=== PATIENT | female | born 1970 | race Caucasian/White ===

== ENCOUNTER 2023-03-20 14:39 | Outpatient (OUT) | payer OTHER, SELFPAY ==
--- NOTE | 2023-03-20 15:13 | ECG_ITS ---
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
== END 2023-03-20 14:40 ==
LOC: PST 14:46
PROVIDERS: PCP Family Medicine; Visit Provider Urology
DX: Z01.810 Encounter for preprocedural cardiovascular examination (principal); N20.1 Calculus of ureter; Z86.711 Personal history of pulmonary embolism; Z79.01 Long term (current) use of anticoagulants; M19.90 Unspecified osteoarthritis, unspecified site; F32.A Depression, unspecified; I10 Essential (primary) hypertension; D64.9 Anemia, unspecified
CPT/HCPCS: 93005

== ENCOUNTER 2023-03-21 10:55 | Day surgery (SDC) | payer OTHER, SELFPAY ==
[2023-03-20 15:05] VITALS: BP 123/74; PULSE 70; RESP 16; TEMP 36.4; O2SAT 96; BMI 41.5
[2023-03-21] VITALS (9 sets, daily range): BP systolic 118–137; BP diastolic 64–84; PULSE 60–70; RESP 13–24; TEMP 36.7; O2SAT 93–98
[2023-03-21] MEDS: HYDROMORPHONE HCL 0.5 MG/0.5 ML SYRINGE IV (12:23)
[2023-03-21] MEDS: LACTATED RINGER'S SOLUTION 1,000 ML 50 ML IV (12:27)
[2023-03-21] MEDS: CEFAZOLIN SODIUM/DEXTROSE,ISO 1 GM/50 ML IV.SOLN IV (13:10)
--- NOTE | 2023-03-21 14:55 | P.URON_ITS ---
Urology Surgery Operative Note Operative Note Procedure Date: 03/21/23 Time Out Performed: yes Pre-op Diagnosis: right UPJ calculus 5 mm Post-op Diagnosis: same +8 mm Procedures performed: #1. Cystoscopy. #2. Right rigid ureteral dilation. #3. Right ureteroscopy. #4. Holmium laser lithotripsy of right ureteral calculus. #5. Stone basket extraction. #6. Placement of 6 [place] variable length right ureteral stent. this was done under general anesthesia via LMA Primary Surgeon: Vince Pulliam Complications: none Estimated blood loss (mL): 20 Findings: impacted large right proximal ureteral calculus Specimens: right ureteral calculus Drains: none Indications for Procedures: this lady has a 5 mm right UPJ calculus that she has been unable to pass for many days. She is having pain every day and is strongly desirous for attempted stone manipulation and stent placement. She has signed an informed consent after all the risks were explained to her in great detail. Detailed description of Procedure: The patient was brought to the operating room and placed on the operating room table in the supine position. SCDs were placed on the lower extremities and turned on and functioning during the entire case. Timeout was done by all parties in the room. We all agreed upon the patient's identification and the planned procedures for this patient. Genn. anesthesia was then administered. The patient was then repositioned into the modified dorsal lithotomy position. All pressure points were satisfactorily padded. Genitalia were sterilely prepped and draped in usual fashion. I started by passing a 22 FrenchOlympus cystoscope per urethra and into the bladder. Panendoscopy in the bladder showed no evidence of any tumors or stones. While using fluoroscopy I could see her stone at her L3 level on the right side. I then passed a Glidewire through the scope and cannulated the right ureter. I was able to get it up to the stone. The wire buckled numerous times until it finally passed beyond the stone into the kidney. There was an immediate E flux of cloudy bloody debris coming down the ureter into the bladder at this time. An used a 8 and 10 [place] rigid dilator to dilate the distal ureter. The scope was then removed. I then passed a 11/13 ureteral access sheath over the wire and up the ureter to the L5 level. The wire and stylette were then removed. I then passed a flexible ureteroscope through the access sheath into the ureter and ascended up the ureter. I was able to get up to the stone. The stone was impacted. I then passed a 272 ? holmium laser fiber through the scope and made contact with the stone. I began doing laser lithotripsy at 4 W continuously. Since the patient was on Ellik was and only held the medicine for one day I did as minimal lasering as possible. I then passed a 0 tip nitinol basket and engaged pieces by pieces and extracted them down and these were sent for stone analysis. The largest piece of the stone that was remaining was impacted. I had to use the basket to chisel the stone off of the wall of the ureter. I was then able to get a purchase on the stone and rotated in its longitudinal axis so as to bring it down the ureter and extracted out. This was sent for stone analysis. The wire was then passed back through the sheath and up into the kidney and the access sheath was removed. I then backloaded the cystoscope over the wire and passed it into the bladder. I then a 6 [place] variable length right ureteral stent over the wire and up into the kidney. The wire was removed and there were good curls in the kidney and in the bladder. The bladder was drained of its contents and the scope was then removed. She was then transferred to a [facility] bed and wheeled to PACU in stable condition. She'll be discharged to home later today with a prescription for Vesicare and she will continue her Keflex. We will keep her stent in for 2-3 weeks.
[2023-03-27 20:24] LABS: Calcium Oxalate Dihydrate 10 % (.); Calcium Oxalate Monohydrate 90 % (.); Size 5x6 mm (.)
== END 2023-03-21 16:00 | disposition home or self-care (01) ==
PROVIDERS: PCP Family Medicine; Visit Provider Urology
PROC: (CPT 918; principal; 2023-03-21 12:00)
DX: N13.2 Hydronephrosis with renal and ureteral calculous obstruction (principal); Z86.711 Personal history of pulmonary embolism; M19.90 Unspecified osteoarthritis, unspecified site; F32.A Depression, unspecified; I10 Essential (primary) hypertension; Z79.01 Long term (current) use of anticoagulants; D64.9 Anemia, unspecified; Z96.649 Presence of unspecified artificial hip joint
CPT/HCPCS: 00918; 52356; 76000; 82365; 99999; C1874; J1170; J2704